=== PATIENT | female | born 1950 | race Caucasian/White ===

== ENCOUNTER 2025-05-24 16:18 | Emergency (ER) | payer MEDICARE, SELFPAY ==
[2025-05-24 16:41] VITALS: BP 173/90; PULSE 79; RESP 18; TEMP 36.7; O2SAT 100
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
[2025-05-24 17:07] VITALS: BP 160/92
--- OUTSIDE RECORDS SUMMARY | 2025-05-25 03:40 | XMS_ITS | Clinical Summary ---
Author Organization [facility] Address [address] [place] [address] Phone Care Team Providers Care Avionics Test Technician Name Role Phone Husam Cedeno MD Primary Care Provider [phone] Allergies Active Allergy Reactions Criticality Noted Date Comments Codeine Itching Low 09/07/2021 Tetracyclines Itching Low 09/07/2021 Medications acetaminophen-as pirin-caffeine (EXCEDRIN MIGRAINE) 250-250-65 mg per tablet Take 1 tablet by mouth every 6 (six) hours as needed Active meloxicam (MOBIC) 7.5 mg tablet Take 1 tablet (7.5 mg total) by mouth daily 30 tablet 1 09/07/2021 Active Active Problems No known active problems Immunizations Immunization Administration Dates Next Due Influenza, Unspecified 09/07/2021(Deferred: Daniella ent Refused) Surgical History Surgery Date Site/Laterality Comments HYSTERECTOMY Medical History Medical History Date Comments Bipolar 1 disorder (HCC) Family History Medical History Relation Name Comments Heart disease Maternal Grandmother Cancer Mother's Sister Breast cancer Neg Hx Ovarian cancer Neg Hx Thyroid cancer Neg Hx Relation Name Status Comments Maternal Grandmother Mother's Sister Social History Tobacco Use Types Packs/Day Years Used Date Smoking Tobacco: Every Day Cigarettes 0.1 15 Smokeless Tobacco: Never Tobacco Cessation:Ready to Q uit: No; Counseling Given: Yes Comments Unknown Sex and Gender Information Value Date Recorded Sex Assigned at Not on file Legal Sex Female 2:08 PM CDT Gender Identity Not on file Sexual Orientation Not on file Obstetrics History Para Term AB IAB SAB Ectopic Multiple Livin g Live Births 3 1 Date Outcome GA Total Labor Labor/2nd/3rd Weight Sex Type Anes PTL Mariela A1 A5 Name Clin Last Filed Vital Signs Vital Sign Reading Time Taken Comments Blood Pressure 144/72 09/07/2021 1:51 PM [employer] Pulse 75 09/07/2021 1:23 PM [employer] Temperature 36.8 C (98.3 F) 09/07/2021 1:23 PM [employer] Respiratory Rate - - Oxygen Saturation 96% 09/07/2021 1:23 PM [employer] Inhaled Oxygen Concentration - - Weight 84.1 kg (185 lb 6.4 oz) 09/07/2021 1:23 P M [employer] Height 162.6 cm (5' 4) 01/17/2025 2:02 PM CDT Body Mass Index 32.84 09/07/2021 1:23 PM [employer] Plan of Treatment Health Maintenance Due Date Last Done Comments Colon Cancer Screening-Colonoscopy 1950 Depression Screening 1950 Fall Risk Assessment 1950 Hepatitis C Screening 1950 Osteoporosis Screening-Bone Density Scan 1950 DTaP/Tdap/Td Vaccine (1 - Tdap) 1962 Hepatitis B Screening 1969 Pneumococcal vaccine 65+ (1 of 2 - PCV) 1970 Zoster Vaccine (1 of 2) 2001 Well Visit 65+ 2016 Influenza Vaccine (#1) 2025 Breast Cancer Screening-Mammogram 01/17/2026 025 Procedures Procedure Name Priority Date/Time Associated Diagnosis Comments SCREENING MAMMOGRAM BILATERAL W ELIZABETH Schedule Routine, Read Routine (OP Routine) 01/17/2025 2:19 PM CDT Screening mammogram, encounter for from Last 3 Months or Most Recently Relevant to Health Maintenance Results * Screening Mammogram Bilateral W Elizabeth (01/17/2025 2:19 PM CDT) Anatomical Region Laterality Modality Breast Bilateral Mammography Impressions 01/17/2025 3:53 PM CDT Bilateral No evidence of malignancy in either breast. OVERALL BI-RADS FINAL ASSESSMENT: 2 - Benign RECOMMENDATION: Recommend bilateral annual screening mammography. Narrative 01/17/2025 3:53 PM CDT EXAMINATION: Screening Mammogram Bilateral W Elizabeth: 01/17/2025 COMPARISON: Relevant prior studies available at the time of interpretation were reviewed, including the most recent mammogram on: 08/10/2015. TECHNIQUE: Mammography was performed with 2D and digital breast tomosynthesis (DBT) images. CAD was utilized. BREAST PARENCHYMAL COMPOSITION: There are scattered areas of fibroglandular density. FINDINGS: Bilateral There is no suspicious mass, calcification, or architectural distortion in either breast. us Self Referral IMG MAMMO PROCEDURES Final Resul t from Last 3 Months or Most Recently Relevant to Health Maintenance Insurance [employer] MED[employer] HMO PPO MEDICARE PPO Care Teams Avionics Test Technician Relationship Specialty Start Date End Date Husam Cedeno MD [address] [address] [place] [address] PCP - General General Surgery 11/26/24
== END 2025-05-24 17:17 | disposition home or self-care (01) ==
PROVIDERS: Emergency Provider Registered Nurse
DX: R03.0 Elevated blood-pressure reading, without diagnosis of hypertension (principal); H54.7 Unspecified visual loss; M20.41 Other hammer toe(s) (acquired), right foot; F17.210 Nicotine dependence, cigarettes, uncomplicated; F12.90 Cannabis use, unspecified, uncomplicated
CPT/HCPCS: 99202; G0463